=== PATIENT | female | born 1940 | race Two or more races ===

== ENCOUNTER → 2017-10-07 11:01 | Outpatient (CLI) | payer OTHER ==
[~2017-10-07 11:01] MED LIST: ETODOLAC500 MG; HYZAAR 100/25 T1 TAB; LIPITOR20 MG; PREVACID30 MG; ZANTAC25 MG/1 ML
== END | disposition home or self-care (01) ==
LOC: LAB 11:01
DX: M19.90 Unspecified osteoarthritis, unspecified site (principal); L20.89 Other atopic dermatitis; L28.2 Other prurigo; M06.4 Inflammatory polyarthropathy

== ENCOUNTER → 2018-04-21 12:36 | Outpatient (CLI) | payer OTHER | END | disposition home or self-care (01) | LOC: EKG 12:36 | DX: I10 Essential (primary) hypertension (principal) ==

== ENCOUNTER 2018-06-17 10:59 | Emergency (ER) | payer OTHER ==
[~2018-06-17] VITALS: Ht 160 cm; Wt 99.8 kg
[2018-06-17] MEDS ORDERED: SYNTHROID50 MCG (11:19)
[2018-06-17] MEDS ORDERED: IPRAT-ALBUT 0.5-3 ML IH (18:05)
== END 2018-06-17 18:31 | disposition home or self-care (01) ==
LOC: ER 10:59
DX: J45.998 Other asthma (principal); J11.1 Influenza due to unidentified influenza virus with other respiratory manifestations

== ENCOUNTER 2018-08-03 07:17 | Outpatient (CLI) | payer OTHER ==
[~2018-08-03 07:17] MED LIST changes: +IPRAT-ALBUT 0.5-3 ML IH; +SYNTHROID50 MCG
== END 2018-08-03 07:28 | disposition home or self-care (01) ==
LOC: NUCLEAR 07:17
DX: I11.9 Hypertensive heart disease without heart failure (principal)
CPT/HCPCS: 78452; 93017; A9500; J0153

== ENCOUNTER 2019-02-09 15:56 | Inpatient (IN) | payer OTHER ==
[~2019-02-09] VITALS: Ht 157.5 cm; Wt 108.0 kg
== END 2019-02-15 18:23 | disposition home or self-care (01) | DRG 309 ==
LOC: ER 15:56 → MEDJ 18:18
PROVIDERS: ADMIT Internal Medicine Cardiovascular Disease
PROC: B246ZZZ Ultrasonography of Right and Left Heart (ICD-10-PCS; principal; 2019-02-09)
PROC: 4A033R1 Measurement of Arterial Saturation, Peripheral, Percutaneous Approach (ICD-10-PCS; 2019-02-09)
PROC: 3E0F7GC Introduction of Other Therapeutic Substance into Respiratory Tract, Via Natural or Artificial Opening (ICD-10-PCS; 2019-02-09)
PROC: 4A12X4Z Monitoring of Cardiac Electrical Activity, External Approach (ICD-10-PCS; 2019-02-09)
DX: I48.2 Chronic atrial fibrillation (principal); J45.41 Moderate persistent asthma with (acute) exacerbation; J44.1 Chronic obstructive pulmonary disease with (acute) exacerbation; E03.8 Other specified hypothyroidism; I08.0 Rheumatic disorders of both mitral and aortic valves; K21.9 Gastro-esophageal reflux disease without esophagitis; K44.9 Diaphragmatic hernia without obstruction or gangrene; I10 Essential (primary) hypertension; N95.0 Postmenopausal bleeding; Z79.01 Long term (current) use of anticoagulants

== ENCOUNTER 2019-03-13 05:22 | Inpatient (IN) | payer OTHER ==
[~2019-03-13] VITALS: Ht 160 cm; Wt 90.7 kg
[2019-03-13] MEDS ORDERED: AMIODARONE HCL200 MG (05:50)
[2019-03-13] MEDS ORDERED: PEPCID20 MG (05:51)
[2019-03-13] MEDS ORDERED: PROTONIX20 MG (05:51)
[2019-03-13] MEDS ORDERED: CARDIZEM30 MG (05:51)
[2019-03-13] MEDS ORDERED: MONTELUKAST SOD10 MG (05:52)
[2019-03-13] MEDS ORDERED: ELIQUIS5 MG (05:53)
[2019-03-13] MEDS ORDERED: LEVO-T50 MCG (05:53)
[2019-03-13] MEDS ORDERED: LOPRESSOR25 MG (05:55)
[2019-03-13] MEDS ORDERED: IPRATROPIU0.2 MG/1 M ×2 (05:56→18:25)
--- NOTE | 2019-03-13 05:59 | NUR ---
PTE ALERTA Y ORIENTADA X 3 ESFERAS QUIEN REFIERE FATIGA,DIFICULTAD RESP Y TAQUICARDIA.PTE FUE EVALUADA EN UN CDT EN DONDE LE BRINDARON TERAPIA RESP Y SOLUMEDROL,SE AGGIE BP MANUAL 150/80,SE REALIZA EKG CON PULSO DE 78 [address] BETTENCOURT,PTE SATURANDO 87%SE UBICA EN AU.
--- NOTE | 2019-03-13 06:29 | NUR ---
PACIENTE ALERTA,ACTIVA Y ORIENTADA.SE ORIENTA DE TRATAMIENTO JOHNIE ORDEN MEDICA REFIERE ENTENDER.SE RADHA MUESTRAS Y SE CANALIZA CON MEDIDAS ASEPTICAS CORRESPONDIENTES.SE NOTIFICAN AGBG'S Y TERAPIA LAS CUALES SON REALIZADAS POR MR NIYAH GILBERT.SE CONTINUA MONITOREANDO POR CAMBIOS SIGNIFICATIVOS.
--- NOTE | 2019-03-13 07:24 | NUR ---
SE RECIBE PTE FEMENINA DE 78 YRS ALERTA CONCIENTE Y TRANAQUILA EN COMPANIA DE FAMLIAR. PTE EN ESPERA DE SER REVALUADA POR EL SG FULLER. SE LE AGGIE S/V Y SE DOCUMETA. SE LE OFRESE ACOMODARLA EN CAMA LA CUAL REFIERE PTE QUE SE SIENTE MEJOR EN EL AREA DE LA BUTACA DE ASMA UNID.SE MANTIENE BAJO OBSERVACION.
--- NOTE | 2019-03-13 13:29 | NUR ---
SE REALIZA EKG A PTE Y SE UBICA EN CAMA. SE CONECTA A MONITOR CARDIACO Y OXIMETRIA DE PULSO.
--- NOTE | 2019-03-13 15:09 | NUR ---
SE RECIBE PTE DEL TURNO ANTERIOR, ALERTA Y ORIENTADA X 3 EFSERAS, EN CAMA NIVEL MAS BAJO, BOWMAN DE IDENTIFICACION Y EN COMPANIA DE FAMILIAR. SE OBSERVA OCN CANULA NASAL A 2L/MIN, SATURANDO 95%
== END 2019-04-11 15:50 | disposition home or self-care (01) | DRG 291 ==
LOC: ER 05:22 → SEC-K 18:35 → ICU 18:35 → ICU-2 19:37 → ICU 03-14 02:28 → MEDJ 04-04 18:39
PROVIDERS: ADMIT Internal Medicine Cardiovascular Disease
PROC: 4A033R1 Measurement of Arterial Saturation, Peripheral, Percutaneous Approach (ICD-10-PCS; principal; 2019-03-13)
PROC: 3E0F7GC Introduction of Other Therapeutic Substance into Respiratory Tract, Via Natural or Artificial Opening (ICD-10-PCS; 2019-03-13)
PROC: B246ZZZ Ultrasonography of Right and Left Heart (ICD-10-PCS; 2019-03-14)
PROC: 0BH17EZ Insertion of Endotracheal Airway into Trachea, Via Natural or Artificial Opening (ICD-10-PCS; 2019-03-22)
PROC: 5A1955Z Respiratory Ventilation, Greater than 96 Consecutive Hours (ICD-10-PCS; 2019-03-22)
PROC: 0DH67UZ Insertion of Feeding Device into Stomach, Via Natural or Artificial Opening (ICD-10-PCS; 2019-03-22)
PROC: 3E0G76Z Introduction of Nutritional Substance into Upper GI, Via Natural or Artificial Opening (ICD-10-PCS; 2019-03-22)
PROC: 02HV33Z Insertion of Infusion Device into Superior Vena Cava, Percutaneous Approach (ICD-10-PCS; 2019-03-23)
PROC: B246ZZ4 Ultrasonography of Right and Left Heart, Transesophageal (ICD-10-PCS; 2019-03-30)
PROC: BB24ZZZ Computerized Tomography (CT Scan) of Bilateral Lungs (ICD-10-PCS; 2019-04-02)
PROC: 8E0ZXY6 Isolation (ICD-10-PCS; 2019-04-04)
PROC: 4A12X4Z Monitoring of Cardiac Electrical Activity, External Approach (ICD-10-PCS; 2019-04-04)
DX: I11.0 Hypertensive heart disease with heart failure (principal); J18.1 Lobar pneumonia, unspecified organism; J96.01 Acute respiratory failure with hypoxia; J96.02 Acute respiratory failure with hypercapnia; A41.89 Other specified sepsis; J15.8 Pneumonia due to other specified bacteria; J45.32 Mild persistent asthma with status asthmaticus; J98.11 Atelectasis; J91.8 Pleural effusion in other conditions classified elsewhere; N39.0 Urinary tract infection, site not specified; I50.23 Acute on chronic systolic (congestive) heart failure; I48.0 Paroxysmal atrial fibrillation; J06.9 Acute upper respiratory infection, unspecified; B95.2 Enterococcus as the cause of diseases classified elsewhere

== ENCOUNTER 2019-11-24 07:25 | Outpatient (CLI) | payer OTHER ==
[~2019-11-24 07:25] MED LIST changes: +AMIODARONE HCL200 MG; +CARDIZEM30 MG; +ELIQUIS5 MG; +IPRATROPIU0.2 MG/1 M; +LEVO-T50 MCG; +LOPRESSOR25 MG; +MONTELUKAST SOD10 MG; +PEPCID20 MG; +PROTONIX20 MG
== END 2019-11-24 07:34 | disposition home or self-care (01) ==
LOC: TOM 07:25
PROVIDERS: ATTEND Internal Medicine Pulmonary Disease
DX: J84.112 Idiopathic pulmonary fibrosis (principal); J44.9 Chronic obstructive pulmonary disease, unspecified

== ENCOUNTER 2020-02-16 09:30 | Outpatient (CLI) | payer OTHER | END 2020-02-16 09:34 | disposition home or self-care (01) | LOC: RAD 09:30 | PROVIDERS: ATTEND Internal Medicine Pulmonary Disease | DX: I51.7 Cardiomegaly (principal); J45.30 Mild persistent asthma, uncomplicated; I80.10 Phlebitis and thrombophlebitis of unspecified femoral vein ==

== ENCOUNTER 2020-03-05 12:05 | Outpatient (CLI) | payer OTHER | END 2020-03-05 12:11 | disposition home or self-care (01) | LOC: TOM 12:05 | PROVIDERS: ATTEND Psychiatry & Neurology Clinical Neurophysiology | DX: J32.0 Chronic maxillary sinusitis (principal); J44.9 Chronic obstructive pulmonary disease, unspecified; J45.998 Other asthma ==

== ENCOUNTER 2020-03-13 07:23 | Outpatient (CLI) | payer OTHER | END 2020-03-13 07:30 | disposition home or self-care (01) | LOC: NUCLEAR 07:23 | PROVIDERS: ATTEND Internal Medicine Cardiovascular Disease | DX: I20.9 Angina pectoris, unspecified (principal) | CPT/HCPCS: 78452; 93017; A9500; J0153 ==

== ENCOUNTER 2020-06-14 08:04 | Outpatient (CLI) | payer OTHER | END 2020-06-14 10:20 | disposition home or self-care (01) | LOC: MAMO-SONO 08:04 | PROVIDERS: ATTEND Internal Medicine Cardiovascular Disease | DX: Z12.31 Encounter for screening mammogram for malignant neoplasm of breast (principal); N64.59 Other signs and symptoms in breast ==

== ENCOUNTER 2022-03-10 07:09 | Outpatient (CLI) | payer OTHER | END 2022-03-10 07:14 | disposition home or self-care (01) | LOC: TOM 07:09 | PROVIDERS: ATTEND Internal Medicine Gastroenterology | DX: R14.0 Abdominal distension (gaseous) (principal); R10.84 Generalized abdominal pain; Z86.010 Personal history of colon polyps ==

== ENCOUNTER 2024-04-21 05:40 | Day surgery (SDC) | payer OTHER ==
[~2024-04-21 05:40] MED LIST changes: +DILTIAZEM 60 MG; +HYDRALAZINE; +PRESERVISION A1 EAC1; +PROTONIX; +SINGULAIR10 MG; +SPIRONOLACTONE; +ZYRTEC10 M3
[2024-04-21] MEDS ORDERED: HEMOSTATIC MATRIX 1 KIT KIT TOP ONE (09:00)
[2024-04-21] MEDS ORDERED: DIBUCAINE 15 GM OINT..GM. TUBE RECTAL ONE (09:00)
[2024-04-21] MEDS ORDERED: POVIDONE-IODINE 118 ML BOTT TOP ONE (09:00)
[2024-04-21] MEDS ORDERED: levoFLOXacin IN DEXTROSE 5 % 5 MG/ML PIGGYBAG IV ONE (09:00)
[2024-04-21] MEDS ORDERED: LIDOCAINE HCL 1%/EPINEPHRINE 20ML VIAL IJ ONE (09:00)
[2024-04-21] MEDS ORDERED: METRONIDAZOLE/SODIUM CHLORIDE 500 MG/100 ML PIGGYBACK IV ONE (09:00)
[2024-04-21] MEDS ORDERED: OXYCODONE HCL5 MG PO (12:13)
[2024-04-21] MEDS ORDERED: TAMSULOSIN HCL 0.4 MG CAP PO ONE (12:15)
== END 2024-04-21 15:10 | disposition home or self-care (01) ==
LOC: CIR.AMB 05:40
PROVIDERS: ATTEND Surgery
DX: K64.2 Third degree hemorrhoids (principal); K64.4 Residual hemorrhoidal skin tags; K62.5 Hemorrhage of anus and rectum; Z91.013 Allergy to seafood; Z88.0 Allergy status to penicillin